=== PATIENT | male | born 2000 | race Caucasian/White ===

== ENCOUNTER 2024-03-16 09:11 | Emergency (ER) | payer OTHER, SELFPAY ==
--- NOTE | ~2024-03-16 | CT_ITS ---
EXAMINATION: CT abdomen pelvis w con DATE: 03/16/2024 10:23 INDICATION: Upper abdominal pain. Vomiting. Leukocytosis. TECHNIQUE: Computed tomography (CT) of the abdomen and pelvis was performed with 100 mL Omnipaque 350 intravenous contrast. Automated exposure control and iterative reconstruction technique were employe d. The dose-length product was 313.16 mGy-cm. COMPARISON: None. FINDINGS: The visualized portions of the lung bases are clear without pneumonia or pleural effusion. The heart size is normal. No pericardial effusion. The liver, gallbladder, spleen, pancreas, adrenal glands, and right kidney are normal. There are cysts in left kidney measuring up to 15 mm. There are two 2 mm stones in left kidney. There are no dilated loops of bowel. The appendix is not visualized. There are no pathologically enlarged lymph nodes. There is no free intraperitoneal fluid. 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 There is mild lumbar spondylosis. IMPRESSION: 1. No etiology for the patient's symptoms. Reviewed, dictated and finalized at location A.
[2024-03-16 09:18] VITALS: BP 121/64; PULSE 61; RESP 17; TEMP 36.8; O2SAT 100
[2024-03-16 09:31] LABS: Basophils Percent Auto 0.2 % (0.2-1.2); Immature Granulocyte Absolute 0.03 K/mm3 (0.00-0.031); Immature Granulocyte Percent A 0.2 % (0-0.5); Lymphocytes Absolute Auto 1.08 K/mm3 (0.9-3.2); Lymphocytes Percent Auto 8.6 % (18.3-44.2); Mean Corpuscular Hemoglobin 31.3 pg (26-34); Mean Corpuscular Volume 89.3 fl (80-100); Mean Platelet Volume 10.6 fl (7.4-10.4); Monocytes Absolute Auto 0.8 K/mm3 (0.1-0.6); Monocytes Percent Auto 6.5 % (2.6-8.5); Neutrophils Absolute Auto 10.6 K/mm3 (1.3-6.7); Neutrophils Percent Auto 84.5 % (45.5-73.1); Platelet Count Result 242 k/mm3 (150-375); Red Blood Count 4.48 M/mm3 (4.6-6.20); Red Cell Distribution Width 12.1 % (11.5-14.5); White Blood Count 12.5 K/mm3 (4.5-10.0)
[2024-03-16 09:50] LABS: Albumin Level 5.5 g/dL (3.5-5.1); Alkaline Phosphatase 86 U/L (38-126); Anion Gap 17 mmol/L (4-12); Aspartate Amino Transferase 33 U/L (17-59); Bilirubin,Total 1.6 mg/dL (0.2-1.3); Blood Urea Nitrogen 21 mg/dL (9-20); Calcium 10.1 mg/dL (8.4-10.2); Carbon Dioxide 19 mmol/L (22-30); Chloride 104 mmol/L (98-107); Estimated CRCL calculation 139 ml/min; Estimated Glomerular Filt Rate > 60; Glucose 138 mg/dL (65-110); Lipase 190 U/L (23-300); Potassium 3.7 mmol/L (3.4-5.0); Sodium 140 mmol/L (137-145)
[2024-03-16 09:56] LABS: Alanine Aminotransferase 26 U/L (6-50)
[2024-03-16] MEDS: FAMOTIDINE 20 MG/2 ML VIAL IV PUSH (10:02)
[2024-03-16] MEDS: ONDANSETRON INJ 4 MG/2 ML VIAL IV PUSH (10:02)
[2024-03-16] MEDS: SODIUM CHLORIDE 0.9% IV 1,000 ML 999 ML IV CONT ×2 (10:02→10:30)
[2024-03-16 10:03] VITALS: BP 113/60; PULSE 53; RESP 18; O2SAT 99
--- NOTE | 2024-03-16 10:13 | ED.NAVMDI ---
HPI - Nausea/Vomiting/Diarrhea General Chief complaint: Nausea/Vomiting/Diarrhea Stated complaint: vomiting Time Seen by Provider: 03/16/24 09:18 Source: patient Mode of arrival: ambulatory Limitations: no limitations History of Present Illness HPI Narrative: This is a 24-year-old male that presents to the emergency department for abdominal pain ongoing since last night. Reports associated nausea and vomiting. Reports mid abdominal pain. Denies fevers or diarrhea. Related Data Allergies Allergy/AdvReac Type Severity Reaction Status Date / Time No Known Allergies Allergy Verified 03/16/24 09:20 Review of Systems Review of Systems: CONSTITUTIONAL: Denies fever GASTROINTESTINAL: Reports abdominal pain, nausea, vomiting. Denies diarrhea. All systems reviewed & are unremarkable except as noted in HPI and below PMFSH Past Medical History Medical History (Updated 03/16/24 @ 12:42 by Sakina Solis PA-C) No active medical problems Social History Social History (Updated 03/16/24 @ 10:14 by Sakina Solis PA-C) Smoking status: Never smoker Exam Narrative: GENERAL: Well-appearing, well-nourished, and in no acute distress. HEAD: Normocephalic, atraumatic. EYES: EOMI. CHEST: Clear to auscultation. No respiratory distress. No wheezes rales or rhonchi HEART: Regular rate and rhythm. No murmur heard. Normal peripheral pulses. ABDOMEN: Soft, nondistended, normal active bowel sounds. Mild tenderness to palpation in the mid abdomen, without guarding EXTREMITIES: Normal range of motion. No edema. SKIN: Warm, dry, no rash. NEURO: No focal deficits. Alert and oriented x3. PSYCH: Normal mood and affect Course Course Emergency Course: Patient and family updated on workup and agree with plan of care. Tolerating oral intake Vital Signs Vital signs: Vital Signs Temperature 98.2 F 03/16/24 09:18 Pulse Rate 61 03/16/24 09:18 Respiratory Rate 17 03/16/24 09:18 Blood Pressure 121/64 03/16/24 09:18 Pulse Oximetry 100 03/16/24 09:18 Oxygen Delivery Room Air 03/16/24 09:18 Temperature 98.2 F 03/16/24 09:18 Pulse Rate 53 L 03/16/24 10:03 Respiratory Rate 18 03/16/24 10:03 Blood Pressure 113/60 03/16/24 10:03 Pulse Oximetry 99 03/16/24 10:03 Oxygen Delivery Room Air 03/16/24 09:18 MDM - Nausea/Vomiting/Diarrhea MDM Narrative Medical decision making narrative: patient presents to the emergency department for abdominal pain, nausea and vomiting. Ongoing since last night. He is afebrile and nontoxic appearing. His vitals are stable. CBC with mild leukocytosis to 12.5. Metabolic panel without evidence of dehydration. This did improve with IV fluid hydration. Urine also without evidence of dehydration. He does have some white blood cells, this will be sent for culture. He has no urinary symptoms. CT abdomen and pelvis without concerning findings. Patient and family updated on workup and agree with plan of care. Tolerating oral intake. He is to follow up with primary provider. He was given warnings to return to the ER Differential Diagnosis Differential diagnosis: Likely food poisoning, gastroenteritis and dehydration Lab Data Attestation: I reviewed the patient's lab results. 03/16/24 09:21 03/16/24 11:48 Labs: Lab Results 03/16/24 03/16/24 03/16/24 Range/Units 09:21 10:29 11:48 WBC 12.5 H (4.5-10.0) K/mm3 RBC 4.48 L (4.6-6.20) M/mm3 Hgb 14.0 (14.0-18.0) g/dL Hct 40.0 L (42.0-52.0) % MCV 89.3 (80-100) fl MCH 31.3 (26-34) pg MCHC 35.0 (32-36) g/dl RDW 12.1 (11.5-14.5) % Plt Count 242 (150-375) k/mm3 MPV 10.6 H (7.4-10.4) fl Immature Gran % (Auto) 0.2 (0-0.5) % Neut % (Auto) 84.5 H (45.5-73.1) % Lymph % (Auto) 8.6 L (18.3-44.2) % [place] % (Auto) 6.5 (2.6-8.5) % Eos % (Auto) 0.0 (0-4.4) % Baso % (Auto) 0.2 (0.2-1.2) % Lymph # (Auto) 1.08 (0.9-
[2024-03-16 10:38] LABS: Appearance Urine Clear (Clear); Bacteria Urine None Seen /hpf; Bilirubin Urine Negative (Negative); Blood Urine Negative (Negative); Color Urine Yellow (Yellow); Glucose Urine UA Negative (Negative); Ketones Urine 4+ mg/dL (Negative); Leukocyte Esterase Ur 1+ LEU/UL (Negative); Nitrate Urine Negative (Negative); Protein Urine 2+ mg/dL (Negative); RBC Urine 0-2 /hpf (0-2); Squamous Epithelial Cell Urine None Seen /hpf (Few); pH Urine >=9.0 (5.0-9.0)
[2024-03-16 10:39] LABS: Specific Grav Ur 1.055 (1.001-1.035)
[2024-03-16 10:40] LABS: Add Urine Microscopic? YES
[2024-03-16 12:05] LABS: Anion Gap 12 mmol/L (4-12); Blood Urea Nitrogen 20 mg/dL (9-20); Calcium 9.1 mg/dL (8.4-10.2); Carbon Dioxide 20 mmol/L (22-30); Chloride 108 mmol/L (98-107); Estimated CRCL calculation 139 ml/min; Estimated Glomerular Filt Rate > 60; Glucose 107 mg/dL (65-110); Potassium 3.8 mmol/L (3.4-5.0); Sodium 140 mmol/L (137-145)
[2024-03-16 12:54] VITALS: BP 111/59; PULSE 62; RESP 14; O2SAT 100
== END 2024-03-16 13:12 | disposition home or self-care (01) ==
PROVIDERS: Emergency Provider Physician Assistant
DX: E86.0 Dehydration (principal); R11.2 Nausea with vomiting, unspecified
CPT/HCPCS: 36415; 74177; 80048; 80053; 81001; 83690; 85025; 87086; 96361; 96374; 96375; 99284; J2405; J7030; Q9967